=== PATIENT | male | born 1975 | race Hispanic/Latino ===

== ENCOUNTER 2023-12-18 05:18 | Inpatient (IN) | payer OTHER, SELFPAY ==
[2023-12-18 05:57] LABS: #Basophils 0.1 thou/uL (0.0-0.2); #Eosinphils 0.3 thou/uL (0.0-0.7); #Monocytes 0.6 thou/uL (0.11-0.59); #Neutrophils 6.9 thou/uL (1.40-6.50); %Basophils 0.5 % (0.0-1.0); %Eosinophils 3.3 % (0.0-10.0); %Lymphocytes 21.3 % (21.0-51.0); %Monocytes 6.2 % (0.0-10.0); %Neutrophils 68.5 % (42.0-75.0); Hematocrit 46.8 % (42.0-52.0); Hemoglobin 15.8 g/dL (14.0-18.0); Mean Corpuscular HGB CONC 33.8 g/dL (32.0-36.0); Mean Corpuscular Hemoglobin 32.1 pg (27.0-31.0); Mean Corpuscular Volume 95.1 fl (78.0-98.0); Mean Platelet Volume 10.1 fL (7.4-10.4); Platelet Count 212 10x3/uL (130-400); RBC Distribution Width 14.2 % (11.5-14.5); Red Blood Cell (RBC) Count 4.92 mill/uL (4.70-6.10); White Blood Cell (WBC) Count 10.1 10x3/uL (4.8-10.8)
[2023-12-18 06:19] LABS: Actual Bicarbonate (HCO3a) 23.2 mEq/L (22-28); Base Excess (BEa) -1.3 mEq/L (-2.0 to +3.0); CO2 Tension 38.5 mmHg (35.0-45.0); Carboxyhemoglobin (COHb) 2.8 gm% (0.0-3.0); Hematocrit-ABG 47 % (42.0-52.0); O2 Tension (PaO2), arterial 83.8 mmHg (80.0-100.0); pH, Arterial 7.397 (7.35-7.45)
[2023-12-18 06:20] LABS: ALV-art Gradient 17.805 mmHg (0-20); Analyzer IN Cardio ER; Calcium, Ionized (arterial) 1.13 mmol/L (1.12-1.30); Potassium - ABG Lab 3.65 mmol/L (3.70-5.30); Puncture Site RRA
[2023-12-18 06:25] LABS: Acetaminophen Less than 10 mcg/mL (10.0-30.0); Alcohol Less than 10.0 mg/dL (Less than 10); Salicylate Less than 8.0 mg/dL (15.0-30.0)
[2023-12-18 06:26] LABS: ALT (SGPT) 27 U/L (8-55); AST (SGOT) 21 U/L (5-34); Albumin 4.4 g/dL (3.5-5.0); Alkaline Phosphatase 74 U/L (40-110); Anion Gap 12 mmol/L (10-20); BUN (Urea Nitrogen) 16 mg/dL (8.9-20.6); CK (CPK) 246 U/L (30-200); Calc. Creatinine Clearance 0 mL/min (70-130); Calcium 8.8 mg/dL (7.8-10.44); Carbon Dioxide 26 mmol/L (22-29); Chloride 106 mmol/L (98-107); Estimated GFR 105; Globulin 2.3 g/dL (2.4-3.5); Glucose 100 mg/dL (70-105); Potassium 3.9 mmol/L (3.5-5.1); Protein, Total 6.7 g/dL (6.0-8.3); Sodium 140 mmol/L (136-145)
[2023-12-18 06:30] LABS: Troponin I Less than 0.010 ng/mL (< 0.028)
[2023-12-18 06:56] LABS: Amphetamine Detected (NotDetected); Barbiturates Screen Not Detected (NotDetected); Benzodiazepine Screen Not Detected (NotDetected); Cocaine Metabolite Screen Not Detected (NotDetected); Methadone Not Detected (NotDetected); Methamphetamine Detected (NotDetected); Opiate Screen Not Detected (NotDetected); Oxycodone Screen Not Detected (NotDetected); Phencyclidine (PCP) Not Detected (NotDetected); THC/Cannabinoid Screen Not Detected (NotDetected); Tricyclic Screen Not Detected (NotDetected)
[2023-12-18] MEDS ORDERED: Propofol 1,000 MG/100 ML VIAL IV ONE ×2 (07:01→11:43)
[2023-12-18] MEDS ORDERED: Etomidate 40 MG (20 mL) VIAL ONE (07:10)
[2023-12-18] MEDS ORDERED: Rocuronium Bromide 10 MG/ML (10ML VIAL) ONE (07:10)
[2023-12-18] MEDS ORDERED: Guaifenesin DM 100-10/5 ML UDCUP PO PRN (08:23)
[2023-12-18] MEDS ORDERED: Senokot S 8.6-50 MG TAB PO PRN (08:23)
[2023-12-18] MEDS ORDERED: Ondansetron PF 4 MG/2 ML Vial IVP PRN ×2 (08:23→13:57)
[2023-12-18] MEDS ORDERED: Fentanyl CADD 100 ML IV SCH ×2 (08:30→14:45)
[2023-12-18] MEDS ORDERED: Propofol 1,000 MG/100 ML VIAL IV PRN (08:30)
[2023-12-18 08:49] LABS: Base Excess (BEa) -2.3 mEq/L (-2.0 to +3.0); CO2 Tension 46.6 mmHg (35.0-45.0); Carboxyhemoglobin (COHb) 1.7 gm% (0.0-3.0); Hematocrit-ABG 47 % (42.0-52.0); Hemoglobin (Hb) 16.1 g/dL (14.0-18.0); O2 Tension (PaO2), arterial 133.5 mmHg (80.0-100.0)
[2023-12-18 08:50] LABS: Analyzer IN Cardio ER; Calcium, Ionized (arterial) 1.16 mmol/L (1.12-1.30); Potassium - ABG Lab 3.75 mmol/L (3.70-5.30); Puncture Site LRA
[2023-12-18] MEDS ORDERED: Famotidine/PF 20 mg/2ml Vial ONE (09:21)
[2023-12-18] MEDS: Famotidine/PF 20 mg/2ml Vial SLOW IVP SCH ×2 (09:24→20:32)
[2023-12-18] MEDS: Propofol 1,000 MG/100 ML VIAL IV PRN ×3 (11:39→19:24)
[2023-12-18 12:21] LABS: Bacteria/HPF None Seen HPF (None Seen); Bilirubin Negative (Negative); Blood, Urine Negative (Negative); CAUTI Indications for Culture Alt mental st,lethar; Clarity Turbid (Clear); Glucose, Urine (Dipstick) Normal (Negative); Ketone, Urine Negative (Negative); Leukocyte Negative Leu/uL (Negative); Nitrite Negative (Negative); Protein, Urine (Dipstick) Negative (Neg-Trace); RBC/HPF 0-3 HPF (0-3); Specific Gravity, Urine 1.014 (1.002-1.036); Squamous Epithelial None Seen HPF (0-3); Urobilinogen Normal mg/dL (Less than 2); WBC/HPF 0-3 HPF (0-3); pH, Urine 7.5 (5.0-9.0)
[2023-12-18] MEDS: Sodium Chloride 0.9% 1,000 ML IV SCH (12:24)
[2023-12-18 12:31] LABS: Urine Culture Reflex No No
[2023-12-18] MEDS ORDERED: hydrALAZINE 20 MG/ML VIAL SLOW IVP PRN (13:57)
[2023-12-18] MEDS ORDERED: Electrolyte Replacement Protocol 1 EACH IVPB SCH (14:02)
[2023-12-18] MEDS ORDERED: Acetaminophen 650 MG/20.3 ML UDCUP PO PRN (14:11)
[2023-12-18] MEDS ORDERED: Morphine 2 MG/ML VIAL SLOW IVP PRN (14:45)
[2023-12-18] MEDS ORDERED: Fentanyl BOLUS 250 ML IVPB PRN (14:45)
[2023-12-18] MEDS ORDERED: Propofol BOLUS 1,000 MG/100 ML VIAL IV PRN (14:45)
[2023-12-18] MEDS ORDERED: DISCONTINUE PREVIOUS NARCOTIC PAIN MEDICATIONS AND BENZODIAZEPINES FS SCH (14:45)
[2023-12-18] MEDS ORDERED: Lorazepam 2 MG/ML VIAL SLOW IVP PRN (14:45)
[2023-12-18] MEDS ORDERED: Electrolyte Replacement Protocol FS PRN (15:00)
[2023-12-18] MEDS ORDERED: Magnesium 2 GM/50 ML(in water) 2 GM in Premix 1 BAG IVPB SCH (15:00)
[2023-12-18] MEDS: Enoxaparin 30 MG (0.3 mL) SYRINGE SC SCH (20:33)
[2023-12-19] MEDS: Propofol 1,000 MG/100 ML VIAL IV PRN ×3 (01:00→08:58)
[2023-12-19] MEDS: Sodium Chloride 0.9% 1,000 ML IV SCH (03:10)
[2023-12-19 03:48] LABS: #Eosinphils 0.4 thou/uL (0.0-0.7); #Monocytes 0.8 thou/uL (0.11-0.59); %Basophils 0.2 % (0.0-1.0); %Eosinophils 3.2 % (0.0-10.0); %Lymphocytes 19.4 % (21.0-51.0); %Monocytes 6.2 % (0.0-10.0); %Neutrophils 70.8 % (42.0-75.0); Mean Corpuscular HGB CONC 32.6 g/dL (32.0-36.0); Mean Corpuscular Hemoglobin 32.1 pg (27.0-31.0); Platelet Count 181 10x3/uL (130-400); RBC Distribution Width 14.6 % (11.5-14.5); Red Blood Cell (RBC) Count 4.68 mill/uL (4.70-6.10); White Blood Cell (WBC) Count 12.7 10x3/uL (4.8-10.8)
[2023-12-19 03:50] LABS: Mean Corpuscular Volume 98.3 fl (78.0-98.0)
[2023-12-19 04:16] LABS: ALT (SGPT) 23 U/L (8-55); AST (SGOT) 19 U/L (5-34); Albumin 3.6 g/dL (3.5-5.0); Alkaline Phosphatase 62 U/L (40-110); Anion Gap 12 mmol/L (10-20); BUN (Urea Nitrogen) 13 mg/dL (8.9-20.6); Bilirubin, Total 2.2 mg/dL (0.2-1.2); Calc. Creatinine Clearance 164 mL/min (70-130); Calcium 8.6 mg/dL (7.8-10.44); Carbon Dioxide 21 mmol/L (22-29); Chloride 109 mmol/L (98-107); Estimated GFR 104; Globulin 2.6 g/dL (2.4-3.5); Glucose 81 mg/dL (70-105); Magnesium 2.5 mg/dL (1.6-2.6); Protein, Total 6.2 g/dL (6.0-8.3); Sodium 138 mmol/L (136-145)
[2023-12-19] MEDS: Enoxaparin 30 MG (0.3 mL) SYRINGE SC SCH ×2 (08:58→20:45)
[2023-12-19] MEDS: Famotidine/PF 20 mg/2ml Vial SLOW IVP SCH ×2 (08:58→20:46)
[2023-12-19 09:53] VITALS: BMI 34.9
[2023-12-19] MEDS ORDERED: DC Sedation Protocol FS ONE (10:54)
[2023-12-20] MEDS: Enoxaparin 30 MG (0.3 mL) SYRINGE SC SCH (07:29)
[2023-12-20] MEDS: Famotidine/PF 20 mg/2ml Vial SLOW IVP SCH (07:29)
[2023-12-20 11:18] VITALS: BP 156/87; TEMP 98.3
== END 2023-12-20 16:18 | disposition home or self-care (01) | DRG 208 ==
LOC: ERS 05:18 → CCU 06:50 → T4-A 12-19 15:41
PROVIDERS: ADMIT Hospitalist; ATTEND Hospitalist
PROC: 5A1935Z Respiratory Ventilation, Less than 24 Consecutive Hours (ICD-10-PCS; principal; 2023-12-18)
PROC: 0T9B70Z Drainage of Bladder with Drainage Device, Via Natural or Artificial Opening (ICD-10-PCS; 2023-12-18)
PROC: 0BH17EZ Insertion of Endotracheal Airway into Trachea, Via Natural or Artificial Opening (ICD-10-PCS; 2023-12-18)
PROC: 0D9670Z Drainage of Stomach with Drainage Device, Via Natural or Artificial Opening (ICD-10-PCS; 2023-12-18)
PROC: 3E0G76Z Introduction of Nutritional Substance into Upper GI, Via Natural or Artificial Opening (ICD-10-PCS; 2023-12-18)
PROC: 4A133R1 Monitoring of Arterial Saturation, Peripheral, Percutaneous Approach (ICD-10-PCS; 2023-12-18)
DX: J96.01 Acute respiratory failure with hypoxia (principal); G92.8 Other toxic encephalopathy; I10 Essential (primary) hypertension; F19.10 Other psychoactive substance abuse, uncomplicated; F15.10 Other stimulant abuse, uncomplicated; F17.210 Nicotine dependence, cigarettes, uncomplicated; F10.90 Alcohol use, unspecified, uncomplicated; I45.10 Unspecified right bundle-branch block; T43.655A Adverse effect of methamphetamines, initial encounter; Z90.49 Acquired absence of other specified parts of digestive tract; Z71.6 Tobacco abuse counseling
CPT/HCPCS: 31500; 36415; 36600; 51702; 70450; 71045; 71275; 72125; 80053; 80306; 80307; 81001; 82550; 82805; 83605; 83735; 84146; 84443; 84484; 85025; 93005; 94002; 94003; 94760; 96361; 96374; 99292; J0360; J1650; J2060; J2405; J2704; J3010; J3475; J7050; S0028

== ENCOUNTER 2024-01-28 04:36 | Observation (INO) | payer OTHER ==
[2024-01-28] MEDS ORDERED: Acetaminophen 325 MG TAB PO PRN (06:19)
[2024-01-28] MEDS ORDERED: Ondansetron ODT 4 MG TAB PO PRN (06:19)
[2024-01-28] MEDS ORDERED: Ondansetron PF 4 MG/2 ML Vial IVP PRN (06:19)
[2024-01-28 06:21] VITALS: BMI 36.2
[2024-01-28 07:27] LABS: #Eosinphils 0.1 thou/uL (0.0-0.7); #Monocytes 0.2 thou/uL (0.11-0.59); #Neutrophils 9.1 thou/uL (1.40-6.50); %Basophils 0.2 % (0.0-1.0); %Eosinophils 0.5 % (0.0-10.0); %Lymphocytes 14.9 % (21.0-51.0); %Monocytes 1.4 % (0.0-10.0); %Neutrophils 82.7 % (42.0-75.0); Hemoglobin 16.2 g/dL (14.0-18.0); Mean Corpuscular HGB CONC 33.8 g/dL (32.0-36.0); Mean Corpuscular Hemoglobin 31.7 pg (27.0-31.0); Mean Corpuscular Volume 93.9 fl (78.0-98.0); Mean Platelet Volume 10.2 fL (7.4-10.4); Platelet Count 217 10x3/uL (130-400); RBC Distribution Width 13.4 % (11.5-14.5); Red Blood Cell (RBC) Count 5.11 mill/uL (4.70-6.10); White Blood Cell (WBC) Count 10.9 10x3/uL (4.8-10.8)
[2024-01-28] MEDS: Famotidine 20 MG TAB PO SCH (10:56)
[2024-01-28] MEDS: Carvedilol 6.25 MG TAB PO SCH (10:56)
[2024-01-28 11:32] LABS: ALT (SGPT) 21 U/L (8-55); AST (SGOT) 18 U/L (5-34); Albumin 4.1 g/dL (3.5-5.0); Alkaline Phosphatase 73 U/L (40-110); Anion Gap 14 mmol/L (10-20); BUN (Urea Nitrogen) 20 mg/dL (8.9-20.6); Bilirubin, Total 1.8 mg/dL (0.2-1.2); Calc. Creatinine Clearance 160 mL/min (70-130); Calcium 9.1 mg/dL (7.8-10.44); Carbon Dioxide 20 mmol/L (22-29); Chloride 107 mmol/L (98-107); Estimated GFR 105; Globulin 3.3 g/dL (2.4-3.5); Glucose 175 mg/dL (70-105); Potassium 4.3 mmol/L (3.5-5.1); Protein, Total 7.4 g/dL (6.0-8.3); Sodium 137 mmol/L (136-145)
[2024-01-28] MEDS: Famotidine/PF 20 mg/2ml Vial SLOW IVP SCH (11:38)
[2024-01-28 15:52] VITALS: BP 126/80; TEMP 98.4
[2024-01-28] MEDS ORDERED: Carvedilol 6.25 MG TAB PO SCH (17:00)
== END 2024-01-28 17:07 | disposition home or self-care (01) ==
LOC: 2SW 05:44
PROVIDERS: ADMIT Student in an Organized Health Care Education/Training Program; ATTEND Nurse Practitioner Acute Care
DX: I10 Essential (primary) hypertension (principal); F15.10 Other stimulant abuse, uncomplicated; R06.02 Shortness of breath; Z90.49 Acquired absence of other specified parts of digestive tract
CPT/HCPCS: 36415; 80053; 85025; G0378